=== PATIENT | female | born 1980 | race Two or more races ===

== ENCOUNTER 2022-04-30 11:04 | Emergency (ER) | payer MEDICAID, OTHER ==
[~2022-04-30] VITALS: Ht 165.1 cm; Wt 77.1 kg
--- NOTE | 2022-04-30 11:20 | NUR ---
PT SEEN BY DR. ORDAZ FOR EVAL.
[2022-04-30 11:23] VITALS: BP 96/69
[2022-04-30] MEDS ORDERED: paxlovid PO (11:26)
== END 2022-04-30 11:37 | disposition home or self-care (01) ==
LOC: ER 11:17
DX: U07.1 COVID-19 (principal); Z88.8 Allergy status to other drugs, medicaments and biological substances